=== PATIENT | male | born 1965 | race Caucasian/White ===

== ENCOUNTER 2018-03-23 11:00 | Inpatient (IN) | payer OTHER ==
[~2018-03-23] VITALS: Ht 162.6 cm; Wt 72.6 kg
[2018-04-25] MEDS ORDERED: AVAPRO150 MG PO (10:13)
[2018-04-25] MEDS ORDERED: CATAFLAN PO (10:14)
[2018-04-25] MEDS ORDERED: ZOCOR20 MG PO (10:14)
[2018-04-25] MEDS ORDERED: GABAPENTIN800 MG PO (10:14)
[2018-04-25] MEDS ORDERED: XANAX2 MG PO (10:15)
== END 2018-05-03 18:35 | disposition home or self-care (01) | DRG 330 ==
LOC: EDUNIT# 04-25 08:30 → O/R 04-29 05:25 → SURH 04-29 05:25 → SURG-SUITE 04-29 08:30 → SURH 04-29 08:30
PROVIDERS: Colon & Rectal Surgery
PROC: 0DJD8ZZ Inspection of Lower Intestinal Tract, Via Natural or Artificial Opening Endoscopic (ICD-10-PCS; 2018-04-29)
PROC: 4A1BXSH Monitoring of Gastrointestinal Vascular Perfusion using Indocyanine Green Dye, External Approach (ICD-10-PCS; 2018-04-29)
PROC: 0DTN4ZZ Resection of Sigmoid Colon, Percutaneous Endoscopic Approach (ICD-10-PCS; principal; 2018-04-29 07:00)
PROC: BT43ZZZ Ultrasonography of Bilateral Kidneys (ICD-10-PCS; 2018-04-30)
PROC: 30233N1 Transfusion of Nonautologous Red Blood Cells into Peripheral Vein, Percutaneous Approach (ICD-10-PCS; 2018-05-01)
DX: K57.32 Diverticulitis of large intestine without perforation or abscess without bleeding (principal); N17.8 Other acute kidney failure; L76.32 Postprocedural hematoma of skin and subcutaneous tissue following other procedure; D62 Acute posthemorrhagic anemia; I97.191 Other postprocedural cardiac functional disturbances following other surgery; I11.9 Hypertensive heart disease without heart failure; E78.00 Pure hypercholesterolemia, unspecified; R73.01 Impaired fasting glucose; G47.09 Other insomnia; N99.0 Postprocedural (acute) (chronic) kidney failure; R00.0 Tachycardia, unspecified

== ENCOUNTER 2018-04-20 07:30 | Day surgery (SDC) | payer OTHER | END 2018-04-20 14:35 | disposition home or self-care (01) | LOC: AMB-ENDOS 07:30 | DX: K57.32 Diverticulitis of large intestine without perforation or abscess without bleeding (principal) ==

== ENCOUNTER 2018-05-06 17:52 | Inpatient (IN) | payer OTHER ==
[~2018-05-06] VITALS: Ht 177.8 cm; Wt 72.6 kg
[~2018-05-06 17:52] MED LIST: AVAPRO150 MG PO; CATAFLAN PO; GABAPENTIN800 MG PO; XANAX2 MG PO; ZOCOR20 MG PO
[2018-05-06] MEDS ORDERED: INTEGRA F CAPS1 EACH (18:11)
[2018-05-06] MEDS ORDERED: PROBIOTIC1 EAC1 (18:11)
[2018-05-06] MEDS ORDERED: PRILOSEC10 MG (18:12)
[2018-05-06] MEDS ORDERED: VITAMIN B-625 MG (18:12)
[2018-05-06] MEDS ORDERED: TRAMADOL HCL50 MG (18:13)
[2018-05-06] MEDS ORDERED: POLYETHYLENE GL90 GM (18:13)
== END 2018-05-20 15:49 | disposition home or self-care (01) | DRG 862 ==
LOC: ER 17:52 → SURH 20:07
PROC: BW25Y0Z Computerized Tomography (CT Scan) of Chest, Abdomen and Pelvis using Other Contrast, Unenhanced and Enhanced (ICD-10-PCS; principal; 2018-05-06)
PROC: 3E0336Z Introduction of Nutritional Substance into Peripheral Vein, Percutaneous Approach (ICD-10-PCS; 2018-05-08)
PROC: 0W9J30Z Drainage of Pelvic Cavity with Drainage Device, Percutaneous Approach (ICD-10-PCS; 2018-05-09)
PROC: 02HV33Z Insertion of Infusion Device into Superior Vena Cava, Percutaneous Approach (ICD-10-PCS; 2018-05-10)
PROC: 8E0ZXY6 Isolation (ICD-10-PCS; 2018-05-13)
PROC: BW2GYZZ Computerized Tomography (CT Scan) of Pelvic Region using Other Contrast (ICD-10-PCS; 2018-05-17)
DX: T81.43XA Infection following a procedure, organ and space surgical site, initial encounter (principal); K65.1 Peritoneal abscess; K92.2 Gastrointestinal hemorrhage, unspecified; K91.89 Other postprocedural complications and disorders of digestive system; D62 Acute posthemorrhagic anemia; K63.2 Fistula of intestine; N17.8 Other acute kidney failure; L76.32 Postprocedural hematoma of skin and subcutaneous tissue following other procedure; E86.0 Dehydration; I11.9 Hypertensive heart disease without heart failure; R73.01 Impaired fasting glucose; Z90.49 Acquired absence of other specified parts of digestive tract; B96.29 Other Escherichia coli [E. coli] as the cause of diseases classified elsewhere; B95.2 Enterococcus as the cause of diseases classified elsewhere; Z16.12 Extended spectrum beta lactamase (ESBL) resistance; E88.09 Other disorders of plasma-protein metabolism, not elsewhere classified; G47.09 Other insomnia; B96.89 Other specified bacterial agents as the cause of diseases classified elsewhere

== ENCOUNTER 2018-07-19 14:23 | Outpatient (CLI) | payer OTHER ==
[~2018-07-19 14:23] MED LIST changes: +INTEGRA F CAPS1 EACH; +POLYETHYLENE GL90 GM; +PRILOSEC10 MG; +PROBIOTIC1 EAC1; +TRAMADOL HCL50 MG; +VITAMIN B-625 MG
== END 2018-07-19 14:26 | disposition home or self-care (01) ==
LOC: LAB 14:23
DX: K57.20 Diverticulitis of large intestine with perforation and abscess without bleeding (principal)

== ENCOUNTER 2018-07-22 07:13 | Outpatient (CLI) | payer OTHER | END 2018-07-22 07:26 | disposition home or self-care (01) | LOC: TOM 07:13 | DX: K57.20 Diverticulitis of large intestine with perforation and abscess without bleeding (principal) | CPT/HCPCS: 74177; Q9965 ==

== ENCOUNTER 2018-07-27 16:34 | Inpatient (IN) | payer OTHER ==
[~2018-07-27] VITALS: Ht 91.4 cm; Wt 5.0 kg
== END 2018-08-03 21:57 | disposition home or self-care (01) | DRG 393 ==
LOC: ER 16:34 → SEC-K 07-28 00:12 → SURH 07-28 00:12
PROVIDERS: ADMIT Colon & Rectal Surgery
PROC: 02HV33Z Insertion of Infusion Device into Superior Vena Cava, Percutaneous Approach (ICD-10-PCS; 2018-07-30)
PROC: 0W9F30Z Drainage of Abdominal Wall with Drainage Device, Percutaneous Approach (ICD-10-PCS; principal; 2018-08-02)
DX: K63.2 Fistula of intestine (principal); K65.1 Peritoneal abscess; K91.89 Other postprocedural complications and disorders of digestive system; T82.530A Leakage of surgically created arteriovenous fistula, initial encounter; I11.9 Hypertensive heart disease without heart failure; K57.30 Diverticulosis of large intestine without perforation or abscess without bleeding; E88.09 Other disorders of plasma-protein metabolism, not elsewhere classified; Y83.2 Surgical operation with anastomosis, bypass or graft as the cause of abnormal reaction of the patient, or of later complication, without mention of misadventure at the time of the procedure

== ENCOUNTER 2018-11-22 08:54 | Outpatient (CLI) | payer OTHER | END 2018-11-22 09:01 | disposition home or self-care (01) | LOC: TOM 08:54 | DX: K57.32 Diverticulitis of large intestine without perforation or abscess without bleeding (principal); R10.32 Left lower quadrant pain; K63.2 Fistula of intestine ==

== ENCOUNTER 2018-12-05 19:34 | Inpatient (IN) | payer OTHER ==
[~2018-12-05] VITALS: Ht 160 cm; Wt 70.3 kg
[2018-12-05] MEDS ORDERED: ZOCOR20 MG (19:47)
[2018-12-05] MEDS ORDERED: COZAAR50 MG (19:47)
[2018-12-05] MEDS ORDERED: GABAPENTIN800 MG (19:47)
[2018-12-05] MEDS ORDERED: XANAX1 MG (19:47)
--- NOTE | 2018-12-05 19:51 | NUR ---
SE RECIBE PTE ALERTA Y ORIENTADOX 3 EL CUAL REFIERE VENIR POR DOLOR EN CUADRANTE INFERIOR DERECHO. PTE REFIERE LO OPERARON POR DIVERTICULOS RECIENTEMENTE. SE OBSERVA AREA OPERADA LA CUAL SE OBSERVA ROJIZA Y SE SIENTE DURA ALREDEDOR DE LA INCISION. PTE REFIERE DOLOR EN EL AREA OERADA SOLAMENTE. SE MIDEN S/V A PTE Y SE COLOCA EN AREA DE OBSERVACION.
--- NOTE | 2018-12-05 20:43 | NUR ---
SE ORIENTA PTE SOBRE TX MEDICO EL CUAL REFIERE ENTENDER.SE LE EXTRAEN MUESTRAS.SE CANALIZA Y SE ADMINISTRA MEDICAMENTO ELSA ORDEN MEDICA.SE NOTIFICA CT Y SE ENTREGA CONTRASTE.
--- NOTE | 2018-12-05 23:45 | NUR ---
SE RECIBE PTE MASCULINO DE 53 YRS ALERTA CONCIENTE Y TRANQUILO EN COMPANIA DE FAMILIAR. PTE SE LE REALIZA CT DE ABDOMENT LA CUAL SE LE NOTIFICA A LA BLAKE OROPEZA. SE MANTIENE BAJO OBSERVACION POR CAMBIOS.
== END 2018-12-09 10:23 | disposition home or self-care (01) | DRG 373 ==
LOC: ER 19:34 → SURH 12-06 00:31
PROVIDERS: ADMIT Colon & Rectal Surgery
PROC: 0W9F30Z Drainage of Abdominal Wall with Drainage Device, Percutaneous Approach (ICD-10-PCS; principal; 2018-12-06)
DX: K65.1 Peritoneal abscess (principal); B95.4 Other streptococcus as the cause of diseases classified elsewhere

== ENCOUNTER 2018-12-30 07:04 | Outpatient (CLI) | payer OTHER ==
[~2018-12-30 07:04] MED LIST changes: +COZAAR50 MG; +GABAPENTIN800 MG; +XANAX1 MG; +ZOCOR20 MG
== END 2018-12-30 07:39 | disposition home or self-care (01) ==
LOC: TOM 07:04
DX: K57.20 Diverticulitis of large intestine with perforation and abscess without bleeding (principal); K63.2 Fistula of intestine

== ENCOUNTER → 2019-01-04 | Day surgery (SDC) | payer OTHER | END | disposition home or self-care (01) | LOC: AMB-ENDOS 12-28 06:52 | DX: D12.4 Benign neoplasm of descending colon (principal); K64.8 Other hemorrhoids ==